=== PATIENT | female | born 1975 | race American Indian/Alaskan Native ===

== ENCOUNTER 2022-02-14 16:04 | Emergency (ER) | payer OTHER ==
[2022-02-15] MEDS ORDERED: MORPHINE 4 MG/1 ML INJ IV ONE (01:08)
--- NOTE | 2022-02-15 01:15 | Emergency Department Report ---
ED General Adult HPI - General Chief complaint: Pain General Stated complaint: BODY PAIN x2DAYS Time Seen by Provider: 02/15/22 00:44 Source: EMS Mode of arrival: Stretcher Limitations: No Limitations - History of Present Illness Initial comments: 46 yo F who present with left side of her body swelling for the last couple of days and progressively worsening. No fever or chills reported. Swelling is associated with discomfort. No other modifying or associated factors reported. Severity scale (0 -10): 7 - Related Data Home Medications Medication Instructions Recorded Confirmed Last Taken Lisinopril/Hydrochlorothiazide 1 tab PO QDAY 04/07/14 04/07/14 Unknown [Zestoretic 20-12.5 mg] Verapamil HCl mg PO QDAY 04/07/14 04/07/14 Unknown cloNIDine [Catapres] 0.1 mg PO QDAY 04/07/14 04/07/14 Unknown metFORMIN [Glucophage] 500 mg PO BID 04/07/14 04/07/14 Unknown Aspirin EC [Halfprin EC] 81 mg PO DAILY 10/08/15 10/08/15 10/07/15 81 mg Ferrous Sulfate [Feosol 325 MG tab] 325 mg PO DAILY 10/08/15 10/08/15 10/07/15 325 mg Lisinopril/Hydrochlorothiazide 1 each PO DAILY 10/08/15 10/08/15 10/07/15 [Zestoretic 20-12.5 mg] carvediloL [Coreg] 25 mg PO BID 10/08/15 10/08/15 10/07/15 25 mg glipiZIDE [Glucotrol] 5 mg PO BID 10/08/15 10/08/15 10/07/15 5 mg Previous Rx's Medication Instructions Recorded Last Taken Type Sennosides/Docusate Sodium 1 each PO BID #26 tablet 04/07/14 Unknown Rx [Sennosides-Docusate Sodium Tab] predniSONE [Deltasone] 20 mg PO QDAY #5 tab 01/12/16 Unknown Rx HYDROcodone/APAP 5-325 [Lewis 1 each PO Q6HR PRN #10 tablet 09/10/21 Unknown Rx 5/325] Acetaminophen [Tylenol] 500 mg PO Q6HR PRN #60 tablet 09/13/21 Unknown Rx Gabapentin 300 mg PO BID #60 cap 09/13/21 Unknown Rx predniSONE [Deltasone] 60 mg PO QDAY #15 tab 09/13/21 Unknown Rx HYDROcodone/APAP 5-325 [Lewis 1 each PO Q6HR PRN 5 Days #20 02/15/22 Unknown Rx 5/325] tablet NS Ondansetron (Nf) [Zofran TAB] 8 mg PO Q8HR PRN 5 Days #15 tablet 02/15/22 Unknown Rx NS Allergies Allergy/AdvReac Type Severity Reaction Status Date / Time latex Allergy Hives Unverified 01/23/22 01:25 Latex, Natural Rubber Allergy Hives Unverified 01/23/22 01:25 naproxen Allergy Hives Verified 01/23/22 01:25 shrimp Allergy Hives Verified 01/23/22 01:25 ED Review of Systems ROS: Stated complaint: BODY PAIN x2DAYS Other details as noted in HPI Comment: All other systems reviewed and negative Musculoskeletal: joint swelling, myalgia ED Past Medical Hx - Past Medical History Hx Hypertension: Yes 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 Tonsillectomy - Social History Smoking Status: Never Smoker Substance Use Type: None - Medications Home Medications: Home Medications Medication Instructions Recorded Confirmed Last Taken Type Lisinopril/Hydrochlorothiazide 1 tab PO QDAY 04/07/14 04/07/14 Unknown History [Zestoretic 20-12.5 mg] Sennosides/Docusate Sodium 1 each PO BID #26 tablet 04/07/14 Unknown Rx [Sennosides-Docusate Sodium Tab] Verapamil HCl mg PO QDAY 04/07/14 04/07/14 Unknown History cloNIDine [Catapres] 0.1 mg PO QDAY 04/07/14 04/07/14 Unknown History metFORMIN [Glucophage] 500 mg PO BID 04/07/14 04/07/14 Unknown History Aspirin EC [Halfprin EC] 81 mg PO DAILY 10/08/15 10/08/15 10/07/15 History 81 mg Ferrous Sulfate [Feosol 325 MG tab] 325 mg PO DAILY 10/08/15 10/08/1516 History 325 mg Lisinopril/Hydrochlorothiazide 1 each PO DAILY 10/08/15 10/08/15 10/07/15 History [Zestoretic 20-12.5 mg] carvediloL [Coreg] 25 mg PO BID 10/08/15 10/08/15 10/07/15 History 25 mg glipiZIDE [Glucotrol] 5 mg PO BID 10/08/15 10/08/15 10/07/15 History 5 mg predniSONE [Deltasone] 20 mg PO QDAY #5 tab 01/12/16 Unknown Rx HYDROcodone/APAP 5-325 [Lewis 1 each PO Q6HR PRN #10 tablet 09/10/21 Unknown Rx 5/325] Acetaminophen [Tylenol] 500 mg PO Q6HR PRN #60 tablet 09/13/21 Unknown Rx Gabapentin 300 mg PO BID #60 cap 09/13/21 Unknown Rx predniSONE [Deltasone] 60 mg PO QDAY #15 tab 09/13/21 Unknown Rx HYDROcodone/APAP 5-325 [Lewis 1 each PO Q6HR PRN 5 Days #20 02/15/22 Unknown Rx 5/325] tablet NS Ondansetron (Nf) [Zofran TAB] 8 mg PO Q8HR PRN 5 Days #15 tablet 02/15/22 Un known Rx NS ED Physical Exam - General Limitations: No Limitations General appearance: alert, in no apparent distress - Head Head exam: Present: normal inspection - Eye Eye exam: Present: normal appearance - ENT ENT exam: Present: normal exam, normal orophraynx, mucous membranes moist - Neck Neck exam: Present: normal inspection, full ROM. Absent: tenderness - Respiratory Respiratory exam: Present: normal lung sounds bilaterally. Absent: respiratory distress, accessory muscle use - Cardiovascular Cardiovascular Exam: Present: regular rate, normal rhythm, normal heart sounds - GI/Abdominal GI/Abdominal exam: Present: soft, normal bowel sounds. Absent: distended, tenderness - Extremities Exam Extremities exam: Present: normal inspection, full ROM, tenderness (left calf with non pitting edema ), normal capillary refill, pedal edema (non pitting ) - Back Exam Back exam: Absent: tenderness - Neurological Exam Neurological exam: Present: alert, oriented X3 - Psychiatric Psychiatric exam: Present: normal affect, normal mood - Skin Skin exam: Present: warm, normal color ED Course Vital Signs 02/14/22 02/15/22 16:21 00:12 Temperature 97.2 F L Pulse Rate 102 H 82 Respiratory 18 15 Rate Blood Pressure 160/100 180/113 [Left] O2 Sat by Pulse 99 97 Oximetry ED Medical Decision Making - Lab Data Result diagrams: 02/15/22 01:29 02/15/22 01:29 - Medical Decision Making here with left sided swelling and pain -- raised concern for DVT - so will check d-dimer with other routine labs including CBC, CMP and UA -- Labs reviewed and noted with elevated d-dimer so left lower leg doppler order and pre-dick resulted to be negative for any DVT-- patient reassured and d/c home with precautions and pain medication with close follow up with her PCP -- Critical care attestation.: If time is entered above; I have spent that time in minutes in the direct care of this critically ill patient, excluding procedure time. ED Disposition Clinical Impression: Leg pain, left Disposition: HOME / SELF CARE / HOMELESS Is pt being admited?: No Does the pt Need Aspirin: No Condition: Undetermined Instructions: How to Use Cold Therapy, [id number], Pain Without a Known Cause Additional Instructions: Follow the above printed instruction closely to help your symptoms Take your pain medication as prescribed Elevate your leg above your buttocks when laying down or sitting down to help circulation back to your heart Call and schedule follow-up with your primary doctor in the next 3 to 5 days for progress Call or return to emergency room if your symptoms worsen Prescriptions: HYDROcodone/APAP 5-325 [Lewis 5/325] 1 each PO Q6HR PRN 5 Days #20 tablet NS PRN Reason: Pain Ondansetron (Nf) [Zofran TAB] 8 mg PO Q8HR PRN 5 Days #15 tablet NS PRN Reason: Nausea And Vomiting Time of Disposition: 05:56
[2022-02-15 01:54] LABS: Basophils % (Auto) 0.7 % (0.0-1.8); Hematocrit 34.6 % (30.3-42.9); Hemoglobin 11.2 gm/dl (10.1-14.3); Lymphocytes # (Auto) 2.5 K/mm3 (1.2-5.4); Lymphocytes % (Auto) 41.4 % (13.4-35.0); Mean Corpuscular HGB Conc 32 % (30-34); Mean Corpuscular Volume 73 fl (79-97); Monocytes # (Auto) 0.3 K/mm3 (0.0-0.8); Monocytes % (Auto) 5.8 % (0.0-7.3); Platelet Count 307 K/mm3 (140-440); Red Blood Count 4.75 M/mm3 (3.65-5.03); Red Cell Distribution Width 18.9 % (13.2-15.2)
[2022-02-15 01:56] LABS: Bacteria,Urine 1+ /HPF (Negative); Mucus,Urine FEW /HPF
[2022-02-15 01:57] LABS: Color,Urine Yellow (Yellow)
[2022-02-15 02:28] LABS: Alanine Aminotransferase 11 units/L (7-56); Albumin 4.2 g/dL (3.9-5); BUN/Creatinine Ratio 14; Blood Urea Nitrogen 15 mg/dL (7-17); Calcium 9.2 mg/dL (8.4-10.2); Hemolysis Index 11
[2022-02-15 06:40] VITALS: BP 164/89
--- NOTE | 2022-02-15 07:15 | Vascular Lab Report ---
DUPLEX DOPPLER LOWER EXTREMITY VEINS, LEFT INDICATION / CLINICAL INFORMATION: left calf pain with elevated d-dimer TECHNIQUE: Duplex doppler imaging with spectral analysis was performed through the veins of the left lower extremity using venous compression and other maneuvers. COMPARISON: None available. FINDINGS: COMMON FEMORAL VEIN: Negative. SUPERFICIAL FEMORAL VEIN: Negative. POPLITEAL VEIN: Negative. CALF VEINS: Negative. ADDITIONAL FINDINGS: None. IMPRESSION: No sonographic evidence for DVT Signer Name: Todd Ledesma MD Signed: 02/15/2022 7:10 AM Workstation Name: [id number]
== END 2022-02-15 06:39 | disposition home or self-care (01) ==
LOC: ED 16:04
DX: M79.605 Pain in left leg (principal); Z91.040 Latex allergy status; Z91.013 Allergy to seafood
CPT/HCPCS: 36415; 80053; 81001; 85025; 85379; 87086; 93971; 96374; 99284; J2270